=== PATIENT | female | born 1995 | race Caucasian/White ===

== ENCOUNTER → 2019-10-18 | Outpatient (REF) | payer OTHER | LOC: M LAB REF 09:20 | PROVIDERS: ATTEND Physician Assistant | DX: J02.9 Acute pharyngitis, unspecified (principal) ==

== ENCOUNTER 2020-09-24 19:10 | Observation (INO) | payer OTHER ==
[~2020-09-24] VITALS: Ht 152.4 cm; Wt 79.9 kg
[2020-09-24] MEDS ORDERED: WELLTAB40 PO ×2 (19:18→22:50)
[2020-09-24] MEDS ORDERED: NUVAMIS2 PV (19:32)
[2020-09-24] MEDS ORDERED: NS 1,000 ML IV ONE (20:00)
[2020-09-24 20:18] LABS: BASO % 0.5 % (0.0-1.0); EOS % 0.2 % (0.0-3.0); HEMATOCRIT 44.9 % (36.0-47.0); HEMOGLOBIN 14.4 g/dl (12.0-15.5); LYMPH # 0.8 10^3/uL (1.5-5.0); LYMPH % 12.8 % (24.0-44.0); MEAN CORPUSCULAR HEMOGLOBIN 28.1 pg (27.0-33.0); MEAN CORPUSCULAR HGB CONC 32.1 g/dl (32.0-36.5); MEAN CORPUSCULAR VOLUME 87.7 fl (80.0-96.0); MONO # 0.8 10^3/uL (0.0-0.8); MONO % 11.7 % (0.0-5.0); NEUTROPHILS # 4.8 10^3/uL (1.5-8.5); NEUTROPHILS % 74.5 % (36.0-66.0); PLATELET COUNT, AUTOMATED 241 10^3/uL (150-450); RED BLOOD COUNT 5.12 10^6/uL (4.00-5.40); WHITE BLOOD COUNT 6.4 10^3/uL (4.0-10.0)
[2020-09-24 21:35] LABS: ALBUMIN 3.8 GM/DL (3.2-5.2); ALT/SGPT 58 U/L (12-78); BILIRUBIN,DIRECT 0.1 MG/DL (0.0-0.2); BILIRUBIN,TOTAL 0.2 MG/DL (0.2-1.0); BLOOD UREA NITROGEN 13 MG/DL (7-18); CALCIUM LEVEL 9.4 MG/DL (8.5-10.1); CARBON DIOXIDE LEVEL 24 MEQ/L (21-32); CHLORIDE LEVEL 107 MEQ/L (98-107); CREATININE FOR GFR 1.07 MG/DL (0.55-1.30); GLOMERULAR FILTRATION RATE > 60.0 (>60); GLUCOSE, FASTING 87 MG/DL (70-100); NT-PRO BNP 21 PG/ML (<125); SODIUM LEVEL 136 MEQ/L (136-145); THYROID STIMULATING HORMONE 0.878 uIU/ML (0.358-3.740); THYROXINE (T4) 10.9 UG/DL (4.5-12.0); TOTAL PROTEIN 7.6 GM/DL (6.4-8.2)
--- NOTE | 2020-09-24 22:33 | REPVR ---
PROCEDURE INFORMATION: Exam: XR Chest, 1 View Exam date and time: 09/24/2020 9:54 PM Age: 24 years old Clinical indication: Cough and dyspnea; Additional info: Dyspnea/cough TECHNIQUE: Imaging protocol: XR of the chest Views: 1 view. COMPARISON: CR Chest, 2 view PA, Lat 03/12/2015 5:23 PM FINDINGS: Lungs: Unremarkable. No consolidation. Pleural space: Unremarkable. No pleural effusion. No pneumothorax. Heart/Mediastinum: Unremarkable. No cardiomegaly. Bones/joints: Unremarkable. IMPRESSION: No acute findings. Electronically signed by: Derrek Severino On 09/24/2020 22:33:35 PM
[2020-09-24] MEDS ORDERED: ACETAMINOPHEN TAB 650MG DOSE (2X325MG) PO ONE (22:45)
[2020-09-24] MEDS ORDERED: dexameTHASONE 20MG/5ML VIAL (J1100 PER 1MG) IV ONE (22:45)
[2020-09-24] MEDS ORDERED: ALPRAZolam 0.25 MG TAB PO ONE (22:45)
[2020-09-24] MEDS ORDERED: PREN1TAB15 PO (22:50)
[2020-09-24] MEDS ORDERED: NUVAMIS2 VA (22:50)
[2020-09-24 23:01] LABS: INR 0.91; PROTHROMBIN TIME 12.4 SECONDS (12.5-14.3)
[2020-09-24 23:03] LABS: D-DIMER QUANT 325.13 ng/ml (<500)
[2020-09-24] MEDS ORDERED: ALPRAZolam 0.25 MG TAB PO PRN (23:15)
[2020-09-24] MEDS ORDERED: ACETAMINOPHEN TAB 650MG DOSE (2X325MG) PO PRN (23:15)
[2020-09-24 23:20] LABS: C REACTIVE PROTEIN QUANTITATIV 2.56 MG/DL (0.00-0.30); FERRITIN 85 NG/ML (8-252)
[2020-09-24 23:41] LABS: CK-MB VALUE MASS 1.3 NG/ML (<3.6); CPK CREATINE PHOSPHOKINASE 119 U/L (26-192); MB/CK RELATIVE INDEX 1.09 (< OR =4); TROPONIN I < 0.02 NG/ML (< 0.10)
--- NOTE | 2020-09-24 23:59 | HPEPDOC ---
[facility] Medical History & Physical Date of Admission Sep 24, 2020 Date of Service: Sep 24, 2020 History and Physical Chief complaint: Presented to the ER with complaints of chest pain History of present illness: Patient is 24-year-old female with a PMHx of Depression / Anxiety, Polycystic ovarian syndrome, Childhood asthma who presented to the emergency room with complaints of chest pain. 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 On Tuesday patient had tested negative. Patient reported that yesterday. Patient awoke from sleep and reported that she couldnt breathe this morning she woke up with a raspy voice but felt that her breathing was normal. This afternoon, patient began to experience some chest pain that progressed as she went to work. Patient described the chest pain is occurring in the center of her chest; 5- 6/10, continuous aggravated with deep inhalation and alleviated with rest. Patient reported that at work she began crying and felt slightly anxious and came to the emergency room for further evaluation. Patient reports that she is short of breath but denies any cough. She has not e xperience any fevers or chills while at home, however was noted to have a fever while in the ER. Patient denies any nausea, vomiting, constipation or diarrhea. Denies any urinary discomfort. Does report some upper abdominal discomfort has been occurring over the last 1 month. Patient notes that she was recently treated for bacterial vaginosis and has completed a seven-day course of antibiotics 48 hours ago. Patient reports her appetite is poor but denies any changes in her weight. 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 Review of Systems: 10 point review of systems complete, all negative otherwise stated in HPI Physical exam: - Vitals: BP [142/77], HR [123], RR [19], Sat [100%RA], Temp [100.6F] - General: Sitting up in bed, Crying, Speaking in full sentences, AAOx3 - HEENT: NC, AT, PERRLA - CVS: Tachycardia, +S1S2, - Murmurs / rubs / gallops - Lungs: Fair air entry bilaterally, No appreciable wheezing / rales / rhonchi - Abdomen: Soft, Non-distended, Non-tender - Extremities: No lower extremity edema, No calf tenderness - Neuro: No focal motor or sensory deficit - Skin: No visible rashes Labs: See below Imaging: CXR 09/24: No acute findings. EKG: See below Assessment and Plan: Chest pain - likely 2/2 atypical chest pain - 2/2 COVID infection, possibly 2/2 anxiety attack - Patient presented to emergency room with complaints of chest pain - Patient has a history of childhood asthma - Patient is hemodynamically stable and is febrile emergency room at 100.6 F - Saturating well on room air - No significant leukocytosis or lactic acidosis - Inflammatory markers do not appear to be significantly elevated - Imaging noted above - Will continue with telemetry monitoring / troponin trend - Patient has received Dexamethasone / Alprazolam in the ER - Will c/w Alprazolam for anxiety relief - Will c/w Dexamethasone and Xopinex inhaler (re: history of childhood asthma) - Will start incentive spirometry / acapella Depression / Anxiety - c/w Bupropion Polycystic ovarian syndrome - Patient is on oral contraceptive pills as an outpatient - Will hold while inpatient Gastrointestinal prophylaxis - Patient has reported history of epigastric discomfort - Physical without any epigastric tenderness - Will start Omeprazole DVT prophylaxis - Will start Heparin Vital Signs Vital Signs Date Time Temp Pulse Resp B/P (MAP) Pulse Ox O2 Delivery O2 Flow Rate FiO2 09/24/20 22:30 123 142/77 (98) 100 09/24/20 20:36 19 Room Air 09/24/20 19:11 100.6 Laboratory Data Labs 24H Laboratory Tests 2 09/24/20 20:05: Prothrombin Time 12.4, Prothromb Time International Ratio 0.91, Fibrinogen 384, D-Dimer, Quantitative 325.13 09/24/20 20:06: Immature Granulocyte % (Auto) 0.3, Neutrophils (%) (Auto) 74.5H, Lymphocytes (%) (Auto) 12.8L, Monocytes (%) (Auto) 11.7H, Eosinophils (%) (Auto) 0.2, Basophils (%) (Auto) 0.5, Neutrophils # (Auto) 4.8, Lymphocytes # (Auto) 0.8L, Monocytes # (Auto) 0.8, Eosinophils # (Auto) 0.0, Basophils # (Auto) 0.0, Nucleated Red Blood Cells % (auto) 0.0, Anion Gap 5L, Glomerular Filtration Rate > 60.0, Lactic Acid Level 1.2, Calcium Level 9.4, Ferritin 85, Total Bilirubin 0.2, Direct Bilirubin 0.1, Aspartate Amino Transf (AST/SGOT) 35, Alanine Aminotransferase (ALT/SGPT) 58, Alkaline Phosphatase 61, Total Creatine Kinase 119, Creatine Kinase MB 1.3, Creatine Kinase MB Relative Index 1.09, Troponin I < 0.02, C-Reactive Protein, Quantitative 2.56H, UK-Bvx-I-Type Natriuretic Peptide 21, Total Protein 7.6, Albumin 3.8, Albumin/Globulin Ratio 1.0L, Thyroid Stimulating Hormone (TSH) 0.878, Thyroxine (T4) 10.9 09/24/20 23:30: CBC/BMP Laboratory Tests 09/24/20 20:06 Microbiology Microbiology 09/24/20 Blood Culture, Received Pending 09/24/20 Respiratory Virus Panel (PCR) (RAUL) - Final, Complete SARS-CoV-2 (COVID 19) 09/24/20 Blood Culture, Received Pending Home Medications Scheduled Bupropion HCl (Wellbutrin Xl) 300 Mg Tab.er.24h, 300 MG PO DAILY Etonogestrel/Ethinyl Estradiol (Nuvaring Vaginal Ring) 1 Each Vag.ring, 1 RING VA ASDIRECTED INSERT ONE RING FOR 3 WEEKS, THEN TAKE OUT AND WAIT A WEEK BEFORE INSERTING NEXT RING: RING TO BE TAKEN OUT ON 10/02/2020 Pnv,Calcium 72/Iron/Folic Acid ( Vitamin Plus Low Iron) 1 Each Tablet, 1 TAB PO DAILY Allergies Coded Allergies: iodine (Verified Allergy, Severe, TONGUE SWELLING, 09/24/20) Sulfa (Sulfonamide Antibiotics) (Verified Allergy, Intermediate, RASH, SWELLING, 09/24/20) clarithromycin (Verified Adverse Reaction, Intermediate, THRUSH, 09/24/20) RODNEY CRAWFORD MD Sep 24, 2020 23:59
[2020-09-25] MEDS ORDERED: LEVALBUTEROL HFA 45MCG/ACT 15 GM INHALER INH PRN
[2020-09-25 00:57] VITALS: BP 122/62
[2020-09-25] MEDS: HEPARIN SOD (PORCINE) 5000UNITS/ML 1ML VIAL/SYRINGE SC SCH ×2 (04:45→14:00)
[2020-09-25 04:50] VITALS: BP 120/70
[2020-09-25 07:00] LABS: HEMATOCRIT 44.5 % (36.0-47.0); HEMOGLOBIN 14.2 g/dl (12.0-15.5); LYMPH # 0.4 10^3/uL (1.5-5.0); LYMPH % 10.3 % (24.0-44.0); MEAN CORPUSCULAR HGB CONC 31.9 g/dl (32.0-36.5); MEAN CORPUSCULAR VOLUME 87.6 fl (80.0-96.0); MONO # 0.1 10^3/uL (0.0-0.8); MONO % 3.4 % (0.0-5.0); NEUTROPHILS # 3.6 10^3/uL (1.5-8.5); NEUTROPHILS % 85.8 % (36.0-66.0); PLATELET COUNT, AUTOMATED 248 10^3/uL (150-450); RED BLOOD COUNT 5.08 10^6/uL (4.00-5.40); WHITE BLOOD COUNT 4.2 10^3/uL (4.0-10.0)
[2020-09-25 09:00] VITALS: BP 113/72
[2020-09-25] MEDS ORDERED: dexameTHASONE 4 MG/ML 1ML VIAL (J1100 PER 1MG) IV SCH (09:00)
[2020-09-25] MEDS ORDERED: OMEPRAZOLE 20 MG CAP PO SCH (09:00)
[2020-09-25] MEDS ORDERED: buPROPion **XL** TABLET 150MG (WELLBUTRIN XL) PO SCH (09:00)
[2020-09-25] MEDS ORDERED: PRENATAL VITAMINS CHEWABLE TABLET PO SCH (09:00)
[2020-09-25] MEDS ORDERED: LORazepam 2 MG/ML VIAL IV STA (11:05)
[2020-09-25] MEDS ORDERED: LORazepam 2 MG/ML VIAL As Ordered ONE (11:09)
[2020-09-25 11:38] LABS: ALBUMIN 3.6 GM/DL (3.2-5.2); ALT/SGPT 60 U/L (12-78); BILIRUBIN,DIRECT 0.1 MG/DL (0.0-0.2); BILIRUBIN,TOTAL 0.4 MG/DL (0.2-1.0); BLOOD UREA NITROGEN 9 MG/DL (7-18); CALCIUM LEVEL 9.1 MG/DL (8.5-10.1); CARBON DIOXIDE LEVEL 22 MEQ/L (21-32); CHLORIDE LEVEL 109 MEQ/L (98-107); CREATININE FOR GFR 0.94 MG/DL (0.55-1.30); FERRITIN 80 NG/ML (8-252); GLOMERULAR FILTRATION RATE > 60.0 (>60); GLUCOSE, FASTING 120 MG/DL (70-100); HEPATITIS A ANTIBODY IGM NEGATIVE (NEGATIVE); HEPATITIS B CORE ANTIBODY IGM NEGATIVE (NEGATIVE); HEPATITIS B SURFACE ANTIGEN NEGATIVE (NEGATIVE); HEPATITIS C VIRUS ABY INDEX < 0.0 INDEX (<0.8); MAGNESIUM LEVEL 2.3 MG/DL (1.8-2.4); POTASSIUM SERUM 4.4 MEQ/L (3.5-5.1); SODIUM LEVEL 139 MEQ/L (136-145); TOTAL PROTEIN 7.5 GM/DL (6.4-8.2)
--- NOTE | 2020-09-25 12:11 | ECGEPIP ---
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
--- NOTE | 2020-09-25 12:38 | IPNPDOC ---
Text Note Date of Service The patient was seen on 09/25/20. NOTE Subjective: Patient was seen and examined this morning at bedside. Patient tells me that she didn't know she had colon cancer she was tested while going to work. Tells me she didn't display any symptoms denies any fevers cough shortness of breath but tells me she gets frequent anxiety attacks. The knowledge of having been diagnosed with Covid has caused her to have multiple anxiety attacks since being admitted for observation. She tells me she's feeling better now. Patient has 2 children at home and her mother is currently taking care of them discuss plan for quarantine patient understands and will comply per CDC recommendations. Patient says she had a episode of anxiety attack earlier in the day where she felt her heart was racing and she was sweating but after 1 mg of IV Ativan patient calmed down and was feeling much better. Currently patient denies any shortness of breath, denies palpitations or chest pain, and says she feels well enough to go home. Objective: Constitutional: Awake and alert ENT: Sclera are clear Respiratory: Lungs CTA bilaterally. No respiratory distress. No use of accessory muscles. Saturating at 96% on room air Cardiovascular: RRR S1 and S2 are normal Neurologic: No focal neurological deficit. Mental Status: A&O x3, anxious Focused physical exam was completed to limit exposure time to Covid patient. Assessment/plan: 24-year-old female history of depression, anxiety with panic attacks, polycystic ovarian syndrome, asthma in childhood who was found to be positive for Covid during routine workplace screening and was admitted for observation after having a panic attack. Panic attack is resolved and patient is feeling well at time of discharge. Patient will be getting some benzodiazepines to take by mouth as needed to help with the anxiety attack. Then use of being diagnosed with Covid is what triggered her anxiety attack. She is otherwise asymptomatic saturating at 96% on room air and denies any shortness of breath or chest pain at the time of discharge. She also denies any nausea vomiting. Chest x-ray done on day of admission shows no acute findings. Patient is afebrile with no leukocytosis at time of discharge patient did have a single fever 100.6 upon admission related to Covid. [facility] Lola SARAH, I+O VSLola, I+O Laboratory Tests 09/24/20 20:06 12/3/20 06:29 Vital Signs Date Time Temp Pulse Resp B/P (MAP) Pulse Ox O2 Delivery O2 Flow Rate FiO2 09/25/20 09:00 98.2 108 20 113/72 (86) 98 Room Air I&O- Last 24 Hours up to 6 AM 09/25/20 06:00 Intake Total 1060 ml Output Total 200 ml Balance 860 ml ALLI PAYNE MD Sep 25, 2020 12:38
[2020-09-25] MEDS ORDERED: ACET1TAB55 PO ×2 (12:44→12:47)
[2020-09-25] MEDS ORDERED: ALPR0.25 PO ×3 (12:44→12:49)
[2020-09-25] MEDS ORDERED: LEVAINH INH ×2 (12:44→12:47)
[2020-09-25] MEDS ORDERED: ALPR2TAB3 PO (12:51)
[2020-09-25] MEDS ORDERED: ALBUTEROL 90 MCG/ACT 8GM HFA INHALER INH PRN (13:00)
== END 2020-09-25 15:45 | disposition home or self-care (01) ==
LOC: M ED 19:10 → M ED INP 19:11 → ENRESERV 23:21 → M 4MAIN 09-25 01:00
PROVIDERS: ADMIT Internal Medicine; ATTEND Internal Medicine
DX: U07.1 COVID-19 (principal); R07.89 Other chest pain; F41.9 Anxiety disorder, unspecified; F32.9 Major depressive disorder, single episode, unspecified; E28.2 Polycystic ovarian syndrome; Z88.2 Allergy status to sulfonamides; Z88.1 Allergy status to other antibiotic agents
CPT/HCPCS: 36415; 71045; 80048; 80076; 81001; 82550; 82553; 82728; 83605; 83735; 83880; 84145; 84436; 84443; 84484; 85025; 85379; 85384; 85610; 86140; 86705; 86709; 86803; 87040; 87086; 87340; 87486; 87581; 87633; 87798; 93005; 93041; 94760; 96374; 96375; 96376; 99285; J1100; J1644; J2060

== ENCOUNTER 2020-10-11 18:49 | Emergency (ER) | payer OTHER ==
[~2020-10-11] VITALS: Ht 152.4 cm; Wt 79.5 kg
[~2020-10-11 18:49] MED LIST: ACET1TAB55 PO; ALPR0.25 PO; ALPR2TAB3 PO; LEVAINH INH; NUVAMIS2 PV; NUVAMIS2 VA; PREN1TAB15 PO; WELLTAB40 PO
[2020-10-11] MEDS ORDERED: GI COCKTAIL 50ML BTL(HYOSCYAMINE/MAALOX/LIDOCAINE VISCOUS)(1:3:1) PO ONE (19:15)
--- NOTE | 2020-10-11 19:46 | REP ---
INDICATION: CHEST PAIN covid + COMPARISON: 09/24/2020 TECHNIQUE: Portable AP view of the chest FINDINGS: The mediastinum and cardiac silhouette are stable and within normal limits for portable technique. The lung clinton are clear without acute consolidation, effusion, or pneumothorax. Skeletal structures are intact. IMPRESSION: No acute cardiopulmonary process appreciated. <Electronically signed by Luis Sosa > 10/11/20 194
[2020-10-11 19:53] LABS: VENOUS BASE EXCESS -0.9 (-2.0-2.0); VENOUS HCO3 24.8 MEQ/L (23.0-27.0); VENOUS O2 SATURATION 72.5 % (60.0-80.0); VENOUS PARTIAL PRESSURE CO2 45.2 mmHg (38.0-50.0); VENOUS PARTIAL PRESSURE O2 37.9 mmHg (30.0-50.0); VENOUS PH 7.358 UNITS (7.330-7.430); VENOUS STANDARD HCO3 23.1 MEQ/L; VENOUS TOTAL CO2 26.2 MEQ/L (24.0-28.0)
[2020-10-11 19:57] LABS: BASO % 0.3 % (0.0-1.0); EOS # 0.1 10^3/uL (0.0-0.5); EOS % 1.3 % (0.0-3.0); HEMATOCRIT 40.3 % (36.0-47.0); LYMPH # 2.8 10^3/uL (1.5-5.0); LYMPH % 31.3 % (24.0-44.0); MEAN CORPUSCULAR HEMOGLOBIN 28.3 pg (27.0-33.0); MEAN CORPUSCULAR HGB CONC 32.3 g/dl (32.0-36.5); MEAN CORPUSCULAR VOLUME 87.6 fl (80.0-96.0); MONO # 0.7 10^3/uL (0.0-0.8); MONO % 7.4 % (0.0-5.0); NEUTROPHILS # 5.3 10^3/uL (1.5-8.5); NEUTROPHILS % 59.4 % (36.0-66.0); PLATELET COUNT, AUTOMATED 290 10^3/uL (150-450); WHITE BLOOD COUNT 8.9 10^3/uL (4.0-10.0)
[2020-10-11 20:26] LABS: BLOOD UREA NITROGEN 11 MG/DL (7-18); CALCIUM LEVEL 9.1 MG/DL (8.5-10.1); CARBON DIOXIDE LEVEL 28 MEQ/L (21-32); CHLORIDE LEVEL 108 MEQ/L (98-107); CK-MB VALUE MASS < 1.0 NG/ML (<3.6); CPK CREATINE PHOSPHOKINASE 44 U/L (26-192); CREATININE FOR GFR 1.02 MG/DL (0.55-1.30); GLOMERULAR FILTRATION RATE > 60.0 (>60); GLUCOSE, FASTING 123 MG/DL (70-100); MB/CK RELATIVE INDEX 2.27 (< OR =4); POTASSIUM SERUM 3.6 MEQ/L (3.5-5.1); SODIUM LEVEL 142 MEQ/L (136-145); TROPONIN I < 0.02 NG/ML (< 0.10)
[2020-10-11 20:53] VITALS: BP 102/57
== END 2020-10-11 20:50 | disposition home or self-care (01) ==
LOC: M ED 18:49
DX: R07.89 Other chest pain (principal); U07.1 COVID-19; J45.909 Unspecified asthma, uncomplicated; Z79.3 Long term (current) use of hormonal contraceptives; Z79.899 Other long term (current) drug therapy; Z88.2 Allergy status to sulfonamides; Z88.1 Allergy status to other antibiotic agents; Z91.89 Other specified personal risk factors, not elsewhere classified

== ENCOUNTER 2020-10-27 19:51 | Emergency (ER) | payer OTHER ==
[~2020-10-27] VITALS: Ht 152.4 cm; Wt 77.6 kg
[2020-10-27 21:50] LABS: BASO % 0.2 % (0.0-1.0); EOS # 0.1 10^3/uL (0.0-0.5); EOS % 1.2 % (0.0-3.0); HEMATOCRIT 42.3 % (36.0-47.0); HEMOGLOBIN 14.1 g/dl (12.0-15.5); LYMPH # 3.1 10^3/uL (1.5-5.0); MEAN CORPUSCULAR HEMOGLOBIN 29.3 pg (27.0-33.0); MEAN CORPUSCULAR HGB CONC 33.3 g/dl (32.0-36.5); MEAN CORPUSCULAR VOLUME 87.8 fl (80.0-96.0); MONO # 0.6 10^3/uL (0.0-0.8); MONO % 7.4 % (0.0-5.0); NEUTROPHILS # 4.6 10^3/uL (1.5-8.5); PLATELET COUNT, AUTOMATED 245 10^3/uL (150-450); RED BLOOD COUNT 4.82 10^6/uL (4.00-5.40); WHITE BLOOD COUNT 8.4 10^3/uL (4.0-10.0)
[2020-10-27 22:14] LABS: ALBUMIN 3.8 GM/DL (3.2-5.2); ALT/SGPT 44 U/L (12-78); BILIRUBIN,DIRECT < 0.1 MG/DL (0.0-0.2); BILIRUBIN,TOTAL 0.3 MG/DL (0.2-1.0); BLOOD UREA NITROGEN 15 MG/DL (7-18); CALCIUM LEVEL 8.8 MG/DL (8.5-10.1); CARBON DIOXIDE LEVEL 27 MEQ/L (21-32); CHLORIDE LEVEL 111 MEQ/L (98-107); CREATININE FOR GFR 1.05 MG/DL (0.55-1.30); GLOMERULAR FILTRATION RATE > 60.0 (>60); GLUCOSE, FASTING 79 MG/DL (70-100); LIPASE 133 U/L (73-393); POTASSIUM SERUM 4.4 MEQ/L (3.5-5.1); SODIUM LEVEL 143 MEQ/L (136-145); TOTAL PROTEIN 7.2 GM/DL (6.4-8.2)
[2020-10-27 22:16] LABS: HCG, SERUM QUALITATIVE NEGATIVE (NEGATIVE)
[2020-10-27] MEDS ORDERED: ONDANSETRON 4 MG ORAL DISINTEGRATING TAB PO ONE (22:30)
[2020-10-27] MEDS ORDERED: ACETAMINOPHEN 500 MG TAB PO ONE (22:30)
--- NOTE | 2020-10-27 23:14 | REPVR ---
PROCEDURE INFORMATION: Exam: US Abdomen, Limited; Right Upper Quadrant Exam date and time: 10/27/2020 10:46 PM Age: 25 years old Clinical indication: Abdominal pain; Acute; Additional info: Moderate ttp, + murphys sign TECHNIQUE: Imaging protocol: US abdomen. Real time ultrasound with image documentation. Limited exam focused on the right upper quadrant. COMPARISON: RENAL US 12/01/2013 6:03 PM FINDINGS: Liver: Unremarkable. Gallbladder: Cholelithiasis without gallbladder wall thickening or pericholecystic fluid. Positive sonographic James's sign, as per the auto clocks repairer. This is a nonspecific finding. Common bile duct: No stones. No ductal dilatation. Pancreas: Suboptimally visualized. Right kidney: No mass. No definite stones. No hydronephrosis. IMPRESSION: Cholelithiasis without convincing sonographic evidence of acute cholecystitis. Electronically signed by: Gildardo Floyd On 10/27/2020 23:15:28 PM
[2020-10-27] MEDS ORDERED: KETO10TAB PO (23:37)
[2020-10-27] MEDS ORDERED: KETOROLAC 60MG 2ML VIAL IM ONE (23:45)
[2020-10-27] MEDS ORDERED: KETOROLAC TROMETHAMINE 10 MG TAB PO ONE (23:45)
[2020-10-27 23:46] VITALS: BP 109/64
== END 2020-10-28 00:49 | disposition home or self-care (01) ==
LOC: M ED 19:51
DX: K80.50 Calculus of bile duct without cholangitis or cholecystitis without obstruction (principal); F41.9 Anxiety disorder, unspecified; F32.9 Major depressive disorder, single episode, unspecified; Z86.19 Personal history of other infectious and parasitic diseases; Z87.448 Personal history of other diseases of urinary system; Z79.3 Long term (current) use of hormonal contraceptives; Z79.899 Other long term (current) drug therapy; Z88.2 Allergy status to sulfonamides; Z88.1 Allergy status to other antibiotic agents; Z91.89 Other specified personal risk factors, not elsewhere classified
CPT/HCPCS: 76705; 80048; 80076; 83690; 84703; 85025; 99283; Q0162

== ENCOUNTER → 2020-12-21 | Outpatient (CLI) | payer OTHER ==
[~2020-12-21] MED LIST changes: +KETO10TAB PO
== END ==
LOC: M LABSMTC 09:54
PROVIDERS: ATTEND Anesthesiology
DX: Z01.812 Encounter for preprocedural laboratory examination (principal); Z20.822 Contact with and (suspected) exposure to COVID-19

== ENCOUNTER 2020-12-26 08:53 | Day surgery (SDC) | payer OTHER ==
[~2020-12-26] VITALS: Ht 152.4 cm; Wt 74.8 kg
[~2020-12-26 08:53] MED LIST changes: +LR 1,000 ML IV ONE
[2020-12-26] MEDS ORDERED: ROCURONIUM BROMIDE 50 MG/5 ML VIAL As Ordered ONE (09:56)
[2020-12-26] MEDS ORDERED: LIDOCAINE 2% 100MG/5ML SDV (FOR ANES.) As Ordered ONE (09:56)
[2020-12-26] MEDS ORDERED: propofoL 200 MG/20 ML VIAL As Ordered ONE (09:56)
[2020-12-26] MEDS ORDERED: MIDAZOLAM INJ 2MG/2ML VIAL (J2250 PER 1MG) As Ordered ONE (09:57)
[2020-12-26] MEDS ORDERED: fentaNYL 250 MCG/5 ML INJECTION (J3010) As Ordered ONE (09:57)
[2020-12-26] MEDS ORDERED: BUPIVACAINE/EPIN 0.25% 30 ML VIAL As Ordered ONE (10:26)
[2020-12-26] MEDS ORDERED: ESMOLOL INJ 100MG/10ML VIAL As Ordered ONE (11:04)
[2020-12-26] MEDS ORDERED: ACETAMINOPHEN 1000MG 100ML IV BTL (OFIRMEV) (J0131 PER 10MG) As Ordered ONE (11:14)
[2020-12-26] MEDS ORDERED: ONDANSETRON 4MG/2ML VIAL As Ordered ONE ×2 (11:14→12:38)
[2020-12-26] MEDS ORDERED: METOCLOPRAMIDE INJ 10MG/2ML VIAL (J2765 PER 1) As Ordered ONE (11:14)
[2020-12-26] MEDS ORDERED: KETOROLAC 60MG 2ML VIAL As Ordered ONE (11:14)
[2020-12-26] MEDS ORDERED: dexameTHASONE 4 MG/ML 1ML VIAL (J1100 PER 1MG) As Ordered ONE (11:14)
[2020-12-26] MEDS ORDERED: SUGAMMADEX SODIUM 500 MG/5 ML VIAL (BRIDION) As Ordered ONE (11:18)
[2020-12-26] MEDS ORDERED: fentaNYL 100 MCG/2 ML INJECTION (J3010) As Ordered ONE (11:46)
[2020-12-26] MEDS ORDERED: oxyCODONE 5MG TAB PO PRN (12:00)
[2020-12-26] MEDS ORDERED: HYDROMORPHONE HCL 0.5 MG/ 0.5 ML SYRINGE (J1170 PER 1) IV PRN (12:00)
[2020-12-26] MEDS ORDERED: fentaNYL 100 MCG/2 ML INJECTION (J3010) IV PRN (12:00)
[2020-12-26] MEDS ORDERED: LR 1,000 ML IV SCH (12:00)
[2020-12-26] MEDS: HYDROMORPHONE HCL 0.5 MG/ 0.5 ML SYRINGE (J1170 PER 1) IV PRN ×3 (12:18→12:45)
--- NOTE | 2020-12-26 12:31 | RO ---
OPERATIVE NOTE DATE OF OPERATION: 12/26/2020 PREOPERATIVE DIAGNOSIS: Symptomatic cholelithiasis. POSTOPERATIVE DIAGNOSIS: Symptomatic cholelithiasis. PROCEDURE: Robotic cholecystectomy. SURGEON: Isaias Zuleta DO CONFERENCE CENTER MANAGER: Kelly Coleman ANESTHESIA: General. EBL: 5. COMPLICATIONS: None. INDICATIONS FOR PROCEDURE: The patient is a 25-year-old female who presents with symptomatic cholecystitis. Recommendation was to proceed with robotic cholecystectomy. Risks and benefits of the procedure not limited to but including bleeding, infection, hernia formation, damage to surrounding structures, need for further surgery were discussed in detail with the patient, informed consent obtained, procedure was planned. DESCRIPTION OF PROCEDURE: The patient was brought back to operating room 7, after sufficient sedation the abdomen was sterilely prepped and draped. Time out was done to confirm proper patient, proper procedure. Following that 8 mm incision was made in the left upper quadrant, Veress needle was inserted and abdomen was insufflated to 15 mmHg. Veress needle was then removed and 8 mm Optiview port was used to gain access to the abdomen. Once the abdomen was entered three more ports were placed across the right upper quadrant. The robot was docked to the ports. Once the ports were docked the right upper quadrant was examined. Gallbladder fundus was elevated up toward the right shoulder. The cystic artery was anterior on the gallbladder, easily visible. It was dissected free and clipped and cut to move it out of the way. The cystic duct was then dissected free circumferentially and then carefully doubly clipped and cut as well. Rest of the gallbladder was then dissected free from the gallbladder fossa intact, placed inside 5 mm Endo Catch bag and brought out through the right lateral port site. Once the gallbladder was removed 2-0 V-Loc suture was used to close the fascia in peritoneum on the right lateral portal site. The abdomen was desufflated and skin incisions were closed with 4-0 Vicryl subcuticular sutures. The abdomen was cleaned and dried; Steri-Strips and 4 x 4 tapes were applied. This ended the procedure.
[2020-12-26] MEDS ORDERED: ONDANSETRON 4MG/2ML VIAL IV ONE (12:45)
[2020-12-26] MEDS ORDERED: NORCO, ANEXSIA 5/325MG TABLET (HYDROcodone/ACETAMINOPHEN) PO PRN (13:00)
[2020-12-26 14:30] VITALS: BP 117/65
== END 2020-12-26 14:45 | disposition home or self-care (01) ==
LOC: M SDC 08:53
PROVIDERS: ATTEND Surgery
DX: K80.10 Calculus of gallbladder with chronic cholecystitis without obstruction (principal); K21.9 Gastro-esophageal reflux disease without esophagitis; K76.0 Fatty (change of) liver, not elsewhere classified; F41.9 Anxiety disorder, unspecified; F32.9 Major depressive disorder, single episode, unspecified; J45.909 Unspecified asthma, uncomplicated; Z86.16 Personal history of COVID-19; Z88.2 Allergy status to sulfonamides; Z88.1 Allergy status to other antibiotic agents; Z88.8 Allergy status to other drugs, medicaments and biological substances
CPT/HCPCS: 47562; 81025; 88304; J0131; J1100; J1170; J1885; J2250; J2405; J2765; J3010; S2900

== ENCOUNTER 2021-06-20 01:32 | Emergency (ER) | payer OTHER ==
[~2021-06-20] VITALS: Ht 152.4 cm; Wt 79.5 kg
[2021-06-20 01:32] VITALS: BP 120/76
[~2021-06-20 01:32] MED LIST changes: -LR 1,000 ML IV ONE
== END 2021-06-20 04:01 | disposition left against medical advice (07) ==
LOC: M ED 01:32
DX: Z53.21 Procedure and treatment not carried out due to patient leaving prior to being seen by health care provider (principal)

== ENCOUNTER 2021-06-24 11:50 | Emergency (ER) | payer OTHER ==
[~2021-06-24] VITALS: Ht 152.4 cm; Wt 77.7 kg
[2021-06-24] MEDS ORDERED: diphenhydrAMINE 50MG/ML VIAL (J1200) IV STA (14:07)
[2021-06-24] MEDS ORDERED: NS 1,000 ML IV ONE (14:10)
[2021-06-24 14:57] LABS: BASO % 0.4 % (0.0-1.0); EOS # 0.1 10^3/uL (0.0-0.5); EOS % 0.5 % (0.0-3.0); HEMATOCRIT 46.3 % (36.0-47.0); LYMPH # 2.5 10^3/uL (1.5-5.0); LYMPH % 25.5 % (24.0-44.0); MEAN CORPUSCULAR HEMOGLOBIN 29.1 pg (27.0-33.0); MEAN CORPUSCULAR HGB CONC 32.4 g/dl (32.0-36.5); MEAN CORPUSCULAR VOLUME 89.9 fl (80.0-96.0); MONO # 0.6 10^3/uL (0.0-0.8); MONO % 6.4 % (2.0-8.0); NEUTROPHILS # 6.5 10^3/uL (1.5-8.5); NEUTROPHILS % 66.7 % (36.0-66.0); PLATELET COUNT, AUTOMATED 266 10^3/uL (150-450); RED BLOOD COUNT 5.15 10^6/uL (4.00-5.40); WHITE BLOOD COUNT 9.8 10^3/uL (4.0-10.0)
[2021-06-24] MEDS ORDERED: ISOVUE-370 76% 100ML VIAL As Ordered ONE (15:19)
[2021-06-24 15:31] LABS: ALBUMIN 3.7 GM/DL (3.2-5.2); BILIRUBIN,DIRECT 0.1 MG/DL (0.0-0.2); BILIRUBIN,TOTAL 0.4 MG/DL (0.2-1.0); C REACTIVE PROTEIN QUANTITATIV 1.28 MG/DL (0.00-0.30); TOTAL PROTEIN 7.7 GM/DL (6.4-8.2)
--- NOTE | 2021-06-24 16:22 | REP ---
INDICATION: right sided abdominal pain/>RLQ COMPARISON: 12/25/2009. TECHNIQUE: CT Scan of the abdomen and pelvis was performed with intravenous administration of 100 cc of Isovue 370, without oral contrast. Sagittal and coronal reconstruction images are performed. FINDINGS: Lung bases: Unremarkable. Liver: Normal Gallbladder: Prior cholecystectomy. Spleen: Normal. Adrenals: Normal. Pancreas: Normal. Kidneys: Normal. Small and large bowel: Unremarkable. There is no free air or obstruction. Free fluid: None. Abdominal aorta: No aneurysm or dissection. Adenopathy: None. Appendix: Not inflamed. Osseous structures: Unremarkable. Pelvis: No mass. IMPRESSION: Negative CT abdomen and pelvis. <Electronically signed by Isaias Stout > 06/24/21 [id number]
[2021-06-24] MEDS ORDERED: KETOROLAC 30 MG/ML 1ML VIAL IV ONE (16:35)
[2021-06-24] MEDS ORDERED: KETO10TAB PO ×2 (18:53→19:07)
[2021-06-24] MEDS ORDERED: ZOFR4TAB16 PO (18:53)
[2021-06-24 18:57] VITALS: BP 106/61
[2021-06-24 22:34] LABS: GC DNA AMPLIFICATION NEGATIVE (NEGATIVE)
== END 2021-06-24 19:18 | disposition home or self-care (01) ==
LOC: M ED 11:50
DX: R10.9 Unspecified abdominal pain (principal); R11.0 Nausea; J45.909 Unspecified asthma, uncomplicated; Z87.891 Personal history of nicotine dependence; Z79.3 Long term (current) use of hormonal contraceptives; Z79.899 Other long term (current) drug therapy; Z88.2 Allergy status to sulfonamides; Z88.1 Allergy status to other antibiotic agents; Z91.013 Allergy to seafood
CPT/HCPCS: 74177; 80047; 80076; 83690; 84702; 85025; 86140; 87210; 87661; 96361; 96374; 96375; 99284; J1200; J1885; Q9967; U0003

== ENCOUNTER 2021-12-29 14:44 | Emergency (ER) | payer OTHER, MEDICAID ==
[~2021-12-29] VITALS: Ht 152.4 cm; Wt 81.8 kg
[~2021-12-29 14:44] MED LIST changes: +ZOFR4TAB16 PO
[2021-12-29 14:45] VITALS: BP 116/69
[2021-12-29] MEDS ORDERED: MORPHINE 4 MG/ML 1ML VIAL/SYRINGE (J2270) IV ONE (18:05)
[2021-12-29] MEDS ORDERED: NS 1,000 ML IV ONE (18:05)
[2021-12-29] MEDS ORDERED: ONDANSETRON 4MG/2ML VIAL IV ONE (18:05)
[2021-12-29] MEDS ORDERED: HYDR-4570 (18:49)
[2021-12-29] MEDS ORDERED: NOXI1TAB PO (18:49)
[2021-12-29] MEDS ORDERED: LAMO25TA4 PO (18:49)
[2021-12-29] MEDS ORDERED: FLUO20CA22 PO (18:49)
[2021-12-29 19:02] LABS: BASO % 0.4 % (0.0-1.0); EOS # 0.1 10^3/uL (0.0-0.5); EOS % 1.1 % (0.0-3.0); HEMATOCRIT 44.4 % (36.0-47.0); HEMOGLOBIN 14.5 g/dl (12.0-15.5); LYMPH # 3.2 10^3/uL (1.5-5.0); MEAN CORPUSCULAR HEMOGLOBIN 28.7 pg (27.0-33.0); MEAN CORPUSCULAR HGB CONC 32.7 g/dl (32.0-36.5); MEAN CORPUSCULAR VOLUME 87.7 fl (80.0-96.0); MONO # 0.7 10^3/uL (0.0-0.8); MONO % 6.8 % (2.0-8.0); NEUTROPHILS # 6.1 10^3/uL (1.5-8.5); PLATELET COUNT, AUTOMATED 342 10^3/uL (150-450); RED BLOOD COUNT 5.06 10^6/uL (4.00-5.40); WHITE BLOOD COUNT 10.2 10^3/uL (4.0-10.0)
[2021-12-29 19:33] LABS: ALBUMIN 3.8 GM/DL (3.2-5.2); ALT/SGPT 47 U/L (12-78); BILIRUBIN,DIRECT 0.1 MG/DL (0.0-0.2); BILIRUBIN,TOTAL 0.2 MG/DL (0.2-1.0); BLOOD UREA NITROGEN 17 MG/DL (7-18); CALCIUM LEVEL 9.3 MG/DL (8.5-10.1); CARBON DIOXIDE LEVEL 28 MEQ/L (21-32); CHLORIDE LEVEL 106 MEQ/L (98-107); CREATININE FOR GFR 0.97 MG/DL (0.55-1.30); GLOMERULAR FILTRATION RATE > 60.0 (>60); GLUCOSE, FASTING 73 MG/DL (70-100); LIPASE 109 U/L (73-393); POTASSIUM SERUM 4.6 MEQ/L (3.5-5.1); SODIUM LEVEL 140 MEQ/L (136-145); TOTAL PROTEIN 7.3 GM/DL (6.4-8.2)
[2021-12-29] MEDS ORDERED: ISOVUE-370 76% 100ML VIAL As Ordered ONE (20:06)
[2021-12-29] MEDS ORDERED: KETOROLAC 30 MG/ML 1ML VIAL IV ONE (21:50)
[2021-12-29] MEDS ORDERED: AUGMENTIN 875 MG TAB PO ONE (23:15)
[2021-12-29] MEDS ORDERED: AMOX875T2 PO (23:17)
== END 2021-12-29 23:24 | disposition home or self-care (01) ==
LOC: M ED 14:44
DX: K52.9 Noninfective gastroenteritis and colitis, unspecified (principal); K76.0 Fatty (change of) liver, not elsewhere classified; Z88.1 Allergy status to other antibiotic agents; Z88.2 Allergy status to sulfonamides; Z91.013 Allergy to seafood; Z90.49 Acquired absence of other specified parts of digestive tract; Z79.899 Other long term (current) drug therapy
CPT/HCPCS: 74177; 80048; 80076; 81001; 83690; 84702; 85025; 85652; 86140; 96361; 96374; 96375; 99283; J1885; J2270; J2405; Q9967

== ENCOUNTER 2022-01-19 19:33 | Inpatient (IN) | payer OTHER, MEDICAID ==
[~2022-01-19] VITALS: Ht 152.4 cm; Wt 85.5 kg
[~2022-01-19 19:33] MED LIST changes: +AMOX875T2 PO; +FLUO20CA22 PO; +HYDR-4570; +LAMO25TA4 PO; +NOXI1TAB PO
[2022-01-19] MEDS ORDERED: ONDANSETRON 4MG/2ML VIAL IV ONE (22:40)
[2022-01-19] MEDS ORDERED: KETOROLAC 30 MG/ML 1ML VIAL IV ONE (22:40)
[2022-01-19] MEDS ORDERED: NS 1,000 ML IV ONE (22:55)
[2022-01-19 23:10] LABS: BASO # 0.1 10^3/uL (0.0-0.2); BASO % 0.2 % (0.0-1.0); EOS # 0.1 10^3/uL (0.0-0.5); EOS % 0.7 % (0.0-3.0); HEMOGLOBIN 14.2 g/dl (12.0-15.5); LYMPH # 1.1 10^3/uL (1.5-5.0); LYMPH % 5.3 % (24.0-44.0); MEAN CORPUSCULAR HEMOGLOBIN 28.8 pg (27.0-33.0); MEAN CORPUSCULAR VOLUME 87.2 fl (80.0-96.0); MONO # 1.5 10^3/uL (0.0-0.8); MONO % 7.4 % (2.0-8.0); NEUTROPHILS # 17.5 10^3/uL (1.5-8.5); NEUTROPHILS % 85.6 % (36.0-66.0); PLATELET COUNT, AUTOMATED 235 10^3/uL (150-450); RED BLOOD COUNT 4.93 10^6/uL (4.00-5.40); WHITE BLOOD COUNT 20.5 10^3/uL (4.0-10.0)
[2022-01-19 23:24] LABS: BLOOD UREA NITROGEN 11 MG/DL (7-18); CALCIUM LEVEL 8.5 MG/DL (8.5-10.1); CARBON DIOXIDE LEVEL 25 MEQ/L (21-32); CHLORIDE LEVEL 106 MEQ/L (98-107); CREATININE FOR GFR 0.97 MG/DL (0.55-1.30); GLOMERULAR FILTRATION RATE > 60.0 (>60); GLUCOSE, FASTING 118 MG/DL (70-100); HCG, SERUM QUALITATIVE NEGATIVE (NEGATIVE); POTASSIUM SERUM 4.1 MEQ/L (3.5-5.1); SODIUM LEVEL 138 MEQ/L (136-145)
[2022-01-19 23:38] LABS: ERYTHROCYTE SEDIMENTATION RATE 6 mm/hr (0-20)
[2022-01-19] MEDS ORDERED: ISOVUE-370 76% 100ML VIAL As Ordered ONE (23:56)
[2022-01-20] MEDS ORDERED: MORPHINE 4 MG/ML 1ML VIAL/SYRINGE IV ONE (01:05)
[2022-01-20] MEDS ORDERED: AMPICILLIN SOD/SULBACTAM SOD 3 GM in D5W MINI-BAG PLUS 100 ML IV ONE (01:20)
[2022-01-20] MEDS ORDERED: dexameTHASONE 20MG/5ML VIAL (J1100 PER 1MG) IV ONE (01:20)
[2022-01-20] MEDS ORDERED: KETOROLAC 30 MG/ML 1ML VIAL IV PRN (01:50)
[2022-01-20] MEDS: dexameTHASONE 20MG/5ML VIAL (J1100 PER 1MG) IV SCH ×3 (02:32→17:49)
[2022-01-20] MEDS ORDERED: LAMO25TA4 PO (02:37)
[2022-01-20] MEDS ORDERED: ACET-897 PO (02:37)
[2022-01-20] MEDS ORDERED: HYDR-3363 PO (02:37)
[2022-01-20] MEDS ORDERED: IBUP-1764 PO (02:37)
[2022-01-20] MEDS ORDERED: HOME MED LIST COMPLETE! XX SCH (02:40)
[2022-01-20] MEDS: NS 1,000 ML IV SCH ×2 (03:08→10:16)
[2022-01-20 03:30] VITALS: BP 117/68
[2022-01-20] MEDS: hydrOXYzine 25 MG TAB PO SCH ×2 (03:53→20:21)
[2022-01-20] MEDS: lamoTRIgine 25MG TAB PO SCH ×2 (03:53→20:22)
[2022-01-20] MEDS: KETOROLAC 30 MG/ML 1ML VIAL IV PRN ×2 (06:09→11:49)
[2022-01-20 08:00] VITALS: BP 111/63
[2022-01-20 08:05] LABS: HEMATOCRIT 41.4 % (36.0-47.0); HEMOGLOBIN 13.5 g/dl (12.0-15.5); MEAN CORPUSCULAR HEMOGLOBIN 28.2 pg (27.0-33.0); MEAN CORPUSCULAR HGB CONC 32.6 g/dl (32.0-36.5); MEAN CORPUSCULAR VOLUME 86.6 fl (80.0-96.0); PLATELET COUNT, AUTOMATED 187 10^3/uL (150-450); RED BLOOD COUNT 4.78 10^6/uL (4.00-5.40); WHITE BLOOD COUNT 16.4 10^3/uL (4.0-10.0)
[2022-01-20] MEDS: AMPICILLIN SOD/SULBACTAM SOD 3 GM in D5W MINI-BAG PLUS 100 ML IV SCH ×3 (08:12→20:22)
[2022-01-20] MEDS: FLUoxetine 20 MG CAP PO SCH (08:13)
[2022-01-20] MEDS: ACETAMINOPHEN 325 MG/10.15 ML UDC PO PRN ×3 (08:14→20:21)
[2022-01-20 08:29] LABS: BLOOD UREA NITROGEN 9 MG/DL (7-18); CALCIUM LEVEL 8.2 MG/DL (8.5-10.1); CARBON DIOXIDE LEVEL 25 MEQ/L (21-32); CHLORIDE LEVEL 112 MEQ/L (98-107); CREATININE FOR GFR 0.79 MG/DL (0.55-1.30); GLOMERULAR FILTRATION RATE > 60.0 (>60); GLUCOSE, FASTING 129 MG/DL (70-100); POTASSIUM SERUM 4.7 MEQ/L (3.5-5.1); SODIUM LEVEL 140 MEQ/L (136-145)
[2022-01-20 16:00] VITALS: BP 118/63
[2022-01-20] MEDS: KETOROLAC 30 MG/ML 1ML VIAL IV SCH (17:50)
[2022-01-20 20:00] VITALS: BP 112/62
[2022-01-20] MEDS ORDERED: MOM 30ML SUSPENSION UDC PO PRN (20:45)
[2022-01-21] VITALS: BP 117/68
[2022-01-21] MEDS: KETOROLAC 30 MG/ML 1ML VIAL IV SCH ×5 (00:03→23:38)
[2022-01-21] MEDS ORDERED: hydrOXYzine 25 MG TAB PO ONE (00:25)
[2022-01-21] MEDS: ACETAMINOPHEN TAB 650MG DOSE (2X325MG) PO PRN ×2 (00:29→17:08)
[2022-01-21] MEDS: AMPICILLIN SOD/SULBACTAM SOD 3 GM in D5W MINI-BAG PLUS 100 ML IV SCH ×4 (02:06→20:46)
[2022-01-21 06:24] VITALS: BP 112/59
[2022-01-21 07:19] LABS: BASO % 0.1 % (0.0-1.0); HEMOGLOBIN 12.6 g/dl (12.0-15.5); LYMPH # 1.4 10^3/uL (1.5-5.0); LYMPH % 6.8 % (24.0-44.0); MEAN CORPUSCULAR HGB CONC 33.2 g/dl (32.0-36.5); MEAN CORPUSCULAR VOLUME 87.6 fl (80.0-96.0); MONO % 5.1 % (2.0-8.0); NEUTROPHILS # 17.3 10^3/uL (1.5-8.5); NEUTROPHILS % 87.1 % (36.0-66.0); PLATELET COUNT, AUTOMATED 229 10^3/uL (150-450); RED BLOOD COUNT 4.34 10^6/uL (4.00-5.40); WHITE BLOOD COUNT 19.9 10^3/uL (4.0-10.0)
[2022-01-21 07:41] LABS: BLOOD UREA NITROGEN 13 MG/DL (7-18); CALCIUM LEVEL 8.4 MG/DL (8.5-10.1); CARBON DIOXIDE LEVEL 24 MEQ/L (21-32); CHLORIDE LEVEL 112 MEQ/L (98-107); CREATININE FOR GFR 0.88 MG/DL (0.55-1.30); GLOMERULAR FILTRATION RATE > 60.0 (>60); GLUCOSE, FASTING 156 MG/DL (70-100); POTASSIUM SERUM 4.2 MEQ/L (3.5-5.1); SODIUM LEVEL 141 MEQ/L (136-145)
[2022-01-21 08:25] VITALS: BP 99/57
[2022-01-21] MEDS: FLUoxetine 20 MG CAP PO SCH (08:27)
[2022-01-21] MEDS: ONDANSETRON 4MG/2ML VIAL IV PRN ×3 (08:37→22:20)
[2022-01-21] MEDS ORDERED: CALCIUM CARBONATE 500 MG CHEW U/D PO PRN (12:55)
[2022-01-21] MEDS ORDERED: CALCIUM CARBONATE 500 MG CHEW U/D PO ONE (13:15)
[2022-01-21] MEDS: NS 1,000 ML IV SCH (13:34)
[2022-01-21 16:00] VITALS: BP 120/67
[2022-01-21 20:00] VITALS: BP 97/57
[2022-01-21] MEDS: hydrOXYzine 25 MG TAB PO SCH (20:47)
[2022-01-21] MEDS: lamoTRIgine 25MG TAB PO SCH (20:50)
[2022-01-22] VITALS: BP 93/51
[2022-01-22] MEDS ORDERED: hydrOXYzine 25 MG TAB PO ONE (00:30)
[2022-01-22] MEDS: AMPICILLIN SOD/SULBACTAM SOD 3 GM in D5W MINI-BAG PLUS 100 ML IV SCH ×3 (02:54→14:12)
[2022-01-22 04:00] VITALS: BP 99/54
[2022-01-22] MEDS: KETOROLAC 30 MG/ML 1ML VIAL IV SCH ×2 (06:25→14:12)
[2022-01-22] MEDS: NS 1,000 ML IV SCH ×2 (06:26→09:58)
[2022-01-22] MEDS ORDERED: BACITAB PO (07:32)
[2022-01-22] MEDS ORDERED: AMOX875T2 PO (07:32)
[2022-01-22 08:53] LABS: BASO % 0.3 % (0.0-1.0); EOS % 0.2 % (0.0-3.0); HEMATOCRIT 36.7 % (36.0-47.0); HEMOGLOBIN 11.9 g/dl (12.0-15.5); LYMPH # 3.3 10^3/uL (1.5-5.0); LYMPH % 26.8 % (24.0-44.0); MEAN CORPUSCULAR HEMOGLOBIN 28.5 pg (27.0-33.0); MEAN CORPUSCULAR HGB CONC 32.4 g/dl (32.0-36.5); MONO # 0.8 10^3/uL (0.0-0.8); MONO % 6.2 % (2.0-8.0); NEUTROPHILS # 8.1 10^3/uL (1.5-8.5); NEUTROPHILS % 65.1 % (36.0-66.0); PLATELET COUNT, AUTOMATED 237 10^3/uL (150-450); RED BLOOD COUNT 4.17 10^6/uL (4.00-5.40); WHITE BLOOD COUNT 12.4 10^3/uL (4.0-10.0)
[2022-01-22 09:13] LABS: ERYTHROCYTE SEDIMENTATION RATE 13 mm/hr (0-20)
[2022-01-22] MEDS: FLUoxetine 20 MG CAP PO SCH (09:58)
[2022-01-22 10:00] VITALS: BP 114/71
== END 2022-01-22 15:43 | disposition home or self-care (01) | DRG 153 ==
LOC: M ED 19:33 → M ED INP 01-20 01:46 → M PED 01-20 03:19 → OBSVTOIN 01-20 12:06 → EEVIPCON 01-20 12:06
PROVIDERS: ADMIT Family Medicine; ATTEND Family Medicine
DX: J36 Peritonsillar abscess (principal); R13.10 Dysphagia, unspecified; D72.829 Elevated white blood cell count, unspecified; F41.9 Anxiety disorder, unspecified; F32.A Depression, unspecified; J45.909 Unspecified asthma, uncomplicated; K21.9 Gastro-esophageal reflux disease without esophagitis; E66.9 Obesity, unspecified; Z68.36 Body mass index [BMI] 36.0-36.9, adult; Z90.49 Acquired absence of other specified parts of digestive tract; Z79.899 Other long term (current) drug therapy; Z88.1 Allergy status to other antibiotic agents; Z88.2 Allergy status to sulfonamides; Z91.013 Allergy to seafood; Z79.52 Long term (current) use of systemic steroids

== ENCOUNTER 2022-06-13 09:45 | Emergency (ER) | payer MEDICAID, OTHER ==
[~2022-06-13] VITALS: Ht 152.4 cm; Wt 90.6 kg
[~2022-06-13 09:45] MED LIST changes: +ACET-897 PO; +BACITAB PO; +HYDR-3363 PO; +IBUP-1764 PO
[2022-06-13] MEDS ORDERED: SERT50TA29 PO (09:56)
[2022-06-13 10:37] LABS: BASO % 0.2 % (0.0-1.0); EOS # 0.1 10^3/uL (0.0-0.5); EOS % 0.6 % (0.0-3.0); HEMATOCRIT 41.1 % (36.0-47.0); HEMOGLOBIN 13.6 g/dl (12.0-15.5); LYMPH # 1.9 10^3/uL (1.5-5.0); LYMPH % 17.4 % (24.0-44.0); MEAN CORPUSCULAR HEMOGLOBIN 28.8 pg (27.0-33.0); MEAN CORPUSCULAR HGB CONC 33.1 g/dl (32.0-36.5); MEAN CORPUSCULAR VOLUME 86.9 fl (80.0-96.0); MONO # 0.6 10^3/uL (0.0-0.8); MONO % 5.2 % (2.0-8.0); NEUTROPHILS # 8.2 10^3/uL (1.5-8.5); PLATELET COUNT, AUTOMATED 251 10^3/uL (150-450); RED BLOOD COUNT 4.73 10^6/uL (4.00-5.40); WHITE BLOOD COUNT 10.8 10^3/uL (4.0-10.0)
[2022-06-13 11:31] LABS: BLOOD UREA NITROGEN 8 MG/DL (7-18); CALCIUM LEVEL 9.4 MG/DL (8.5-10.1); CARBON DIOXIDE LEVEL 24 MEQ/L (21-32); CHLORIDE LEVEL 106 MEQ/L (98-107); CREATININE FOR GFR 0.64 MG/DL (0.55-1.30); GLOMERULAR FILTRATION RATE > 60.0 (>60); GLUCOSE, FASTING 77 MG/DL (70-100); HCG, SERUM QUANTITATIVE 41625 MIU/ML; POTASSIUM SERUM 3.9 MEQ/L (3.5-5.1); SODIUM LEVEL 134 MEQ/L (136-145)
[2022-06-13] MEDS ORDERED: ONDA4TAB6 PO (12:04)
[2022-06-13] MEDS ORDERED: ONDANSETRON 4MG ORAL DISINTEGRATING TAB PO ONE (12:05)
[2022-06-13 12:09] VITALS: BP 118/61
== END 2022-06-13 12:10 | disposition home or self-care (01) ==
LOC: M ED 09:45
DX: O20.8 Other hemorrhage in early pregnancy (principal); Z3A.12 12 weeks gestation of pregnancy; O99.341 Other mental disorders complicating pregnancy, first trimester; Z88.1 Allergy status to other antibiotic agents; Z88.2 Allergy status to sulfonamides; Z91.013 Allergy to seafood

== ENCOUNTER → 2023-05-19 | Outpatient (REF) | payer MEDICAID, OTHER, BC ==
[~2023-05-19] MED LIST changes: +ETON1VAG7 PV; +ETON1VAG7 VA; -NUVAMIS2 PV; -NUVAMIS2 VA; +ONDA4TAB6 PO; +SERT50TA29 PO
[2023-05-20 14:12] LABS: GC DNA AMPLIFICATION NEGATIVE (NEGATIVE)
== END ==
LOC: M LAB REF 12:01
PROVIDERS: ATTEND Nurse Practitioner Family
DX: Z11.9 Encounter for screening for infectious and parasitic diseases, unspecified (principal)

== ENCOUNTER 2023-11-26 15:17 | Emergency (ER) | payer OTHER ==
[~2023-11-26] VITALS: Ht 165.1 cm; Wt 89.8 kg
[2023-11-26 15:18] VITALS: BP 134/70; TEMP 98.3; O2SAT 99
[2023-11-26] MEDS ORDERED: CEPHALEXIN 500 MG CAP PO ONE (16:15)
[2023-11-26] MEDS ORDERED: CEPH500C PO (16:17)
== END 2023-11-26 16:39 | disposition home or self-care (01) ==
LOC: M ED 15:17
DX: N61.0 Mastitis without abscess (principal); N60.41 Mammary duct ectasia of right breast; J45.909 Unspecified asthma, uncomplicated; Z88.2 Allergy status to sulfonamides; Z91.013 Allergy to seafood; Z88.1 Allergy status to other antibiotic agents; Z79.899 Other long term (current) drug therapy

== ENCOUNTER → 2024-07-02 | Outpatient (REF) | payer OTHER ==
[~2024-07-02] MED LIST changes: +CEPH500C PO; +FLUO-365 PO; -FLUO20CA22 PO; +ONDA-282 PO; -ONDA4TAB6 PO
== END ==
LOC: M LAB REF 16:10
PROVIDERS: ATTEND Nurse Practitioner Family
DX: J06.9 Acute upper respiratory infection, unspecified (principal)

== ENCOUNTER → 2024-08-20 | Outpatient (CLI) | payer OTHER | LOC: M CARPUL 10:39 | PROVIDERS: ATTEND Nurse Practitioner Family | DX: J45.40 Moderate persistent asthma, uncomplicated (principal) ==

== ENCOUNTER → 2024-09-12 | Outpatient (REF) | payer OTHER ==
[~2024-09-12] MED LIST changes: +LAMI25TA PO; +LEVA15HF2 INH; -LEVAINH INH; +TRAZ-252 PO; +VENTAER INH
[2024-09-12 18:09] LABS: BASO % 0.4 % (0.0-1.0); EOS # 0.1 10^3/uL (0.0-0.5); EOS % 1.1 % (0.0-3.0); HEMATOCRIT 43.3 % (36.0-47.0); HEMOGLOBIN 14.2 g/dl (12.0-15.5); LYMPH # 2.6 10^3/uL (1.5-5.0); LYMPH % 31.7 % (24.0-44.0); MEAN CORPUSCULAR HEMOGLOBIN 29.5 pg (27.0-33.0); MEAN CORPUSCULAR HGB CONC 32.8 g/dl (32.0-36.5); MONO # 0.6 10^3/uL (0.0-0.8); NEUTROPHILS # 4.9 10^3/uL (1.5-8.5); NEUTROPHILS % 59.2 % (36.0-66.0); PLATELET COUNT, AUTOMATED 310 10^3/uL (150-450); RED BLOOD COUNT 4.81 10^6/uL (4.00-5.40); WHITE BLOOD COUNT 8.3 10^3/uL (4.0-10.0)
[2024-09-12 18:18] LABS: BLOOD UREA NITROGEN 14 MG/DL (9-23); CALCIUM LEVEL 9.9 MG/DL (8.5-10.1); CARBON DIOXIDE LEVEL 27 MMOL/L (20-31); CHLORIDE LEVEL 104 MMOL/L (98-107); CREATININE FOR GFR 0.85 MG/DL (0.55-1.30); GLOMERULAR FILTRATION RATE > 60.0 (>60); GLUCOSE, FASTING 101 MG/DL (60-100); POTASSIUM SERUM 4.4 MMOL/L (3.5-5.1); SODIUM LEVEL 138 MMOL/L (136-145)
[2024-09-12 18:20] LABS: THYROID STIMULATING HORMONE 2.044 uIU/ML (0.55-4.78)
[2024-09-12 18:21] LABS: TOTAL 25(OH) VITAMIN D 18.9 NG/ML (20.0-100.0)
== END ==
LOC: M LAB REF 17:35
PROVIDERS: ATTEND Nurse Practitioner Family
DX: R53.83 Other fatigue (principal); Z77.011 Contact with and (suspected) exposure to lead; E55.9 Vitamin D deficiency, unspecified

== ENCOUNTER 2024-09-14 17:13 | Inpatient (IN) | payer MEDICAID, OTHER ==
[~2024-09-14] VITALS: Ht 152.4 cm; Wt 90.2 kg
[~2024-09-14 17:13] MED LIST changes: -LAMI25TA PO; -TRAZ-252 PO; -VENTAER INH
[2024-09-14 18:16] LABS: HEMATOCRIT 41.6 % (36.0-47.0); HEMOGLOBIN 13.7 g/dl (12.0-15.5); MEAN CORPUSCULAR HEMOGLOBIN 29.5 pg (27.0-33.0); MEAN CORPUSCULAR HGB CONC 32.9 g/dl (32.0-36.5); MEAN CORPUSCULAR VOLUME 89.5 fl (80.0-96.0); PLATELET COUNT, AUTOMATED 270 10^3/uL (150-450); RED BLOOD COUNT 4.65 10^6/uL (4.00-5.40); WHITE BLOOD COUNT 7.9 10^3/uL (4.0-10.0)
[2024-09-14 18:31] LABS: ETHYL ALCOHOL (ETHANOL) 0.004 % (0.000-0.010); HCG, SERUM QUALITATIVE NEGATIVE (NEGATIVE)
[2024-09-14 18:33] LABS: ALBUMIN 3.4 G/DL (3.2-5.2); ALKALINE PHOSPHATASE 45 U/L (35-104); ALT/SGPT 19 U/L (7.0-40); AST/SGOT 12 U/L (<34); BILIRUBIN,DIRECT < 0.1 MG/DL (<0.4); BILIRUBIN,TOTAL 0.3 MG/DL (0.3-1.2); BLOOD UREA NITROGEN 13 MG/DL (9-23); CALCIUM LEVEL 9.6 MG/DL (8.5-10.1); CARBON DIOXIDE LEVEL 24 MMOL/L (20-31); CHLORIDE LEVEL 106 MMOL/L (98-107); CREATININE FOR GFR 0.93 MG/DL (0.55-1.30); GLOMERULAR FILTRATION RATE > 60.0 (>60); GLUCOSE, FASTING 143 MG/DL (60-100); SALICYLATE LEVEL < 3.0 MG/DL (<30); SODIUM LEVEL 141 MMOL/L (136-145); TOTAL PROTEIN 7.3 G/DL (5.7-8.2)
[2024-09-14 18:36] LABS: THYROID STIMULATING HORMONE 1.563 uIU/ML (0.55-4.78)
[2024-09-14 19:32] LABS: AMPHETAMINES LEVEL URINE NEGATIVE (NEGATIVE); BARBITURATES URINE NEGATIVE (NEGATIVE); BENZODIAZEPINES URINE NEGATIVE (NEGATIVE); CANNABINOIDS URINE NEGATIVE (NEGATIVE); COCAINE METABOLITE URINE NEGATIVE (NEGATIVE); METHADONE URINE NEGATIVE (NEGATIVE); OPIATES URINE NEGATIVE (NEGATIVE); PHENCYCLIDINE URINE NEGATIVE (NEGATIVE)
[2024-09-14] MEDS ORDERED: MAALOX 30 ML SUSP *UDC PO PRN (20:15)
[2024-09-14] MEDS ORDERED: diphenhydrAMINE 25MG CAP PO PRN (20:15)
[2024-09-14] MEDS ORDERED: HOME MED LIST COMPLETE! XX SCH (20:55)
[2024-09-14 22:37] VITALS: BP 138/83; TEMP 97.9; O2SAT 99
[2024-09-15 06:22] VITALS: BP 107/55; TEMP 97.5; O2SAT 96
[2024-09-15] MEDS: IBUPROFEN 400MG TAB PO PRN (08:26)
[2024-09-15] MEDS ORDERED: ALBUTEROL 90 MCG/ACT 8GM HFA INHALER INH PRN (09:15)
[2024-09-15] MEDS: FLUoxetine 20MG CAP PO SCH (11:14)
[2024-09-15] MEDS: ACETAMINOPHEN 325 MG TAB PO PRN (14:41)
[2024-09-15 15:07] VITALS: BP 139/90; TEMP 97.7; O2SAT 100
[2024-09-16 06:21] VITALS: BP 121/72; TEMP 97.5; O2SAT 97
[2024-09-16 15:58] VITALS: BP 129/73; TEMP 98.2; O2SAT 96
[2024-09-16] MEDS: traZODone 50 MG TAB PO PRN (20:48)
[2024-09-17 06:35] VITALS: BP 120/58; TEMP 97.7; O2SAT 96
[2024-09-17] MEDS: lamoTRIgine 25MG TAB PO SCH (10:59)
[2024-09-17] MEDS: MOM 30ML SUSPENSION UDC PO PRN (11:00)
[2024-09-17 14:43] VITALS: BP 131/68; TEMP 98.1; O2SAT 99
[2024-09-18 06:42] VITALS: BP 119/63; TEMP 96.9; O2SAT 98
[2024-09-18] MEDS ORDERED: LAMI25TA PO (12:45)
[2024-09-18] MEDS ORDERED: VENTAER INH (12:45)
[2024-09-18] MEDS ORDERED: TRAZ-252 PO (12:45)
[2024-09-18] MEDS ORDERED: HYDR-3363 PO (12:45)
[2024-09-18 14:51] VITALS: BP 130/81; TEMP 98.4; O2SAT 97
== END 2024-09-18 14:15 | disposition home or self-care (01) | DRG 754 ==
LOC: M ED 17:13 → M ED INP 20:11 → M PSY 22:27
PROVIDERS: ADMIT Psychiatry & Neurology Neurology; ATTEND Psychiatry & Neurology Psychiatry
DX: F32.A Depression, unspecified (principal); R45.851 Suicidal ideations; J45.20 Mild intermittent asthma, uncomplicated; Z79.899 Other long term (current) drug therapy; Z88.2 Allergy status to sulfonamides; Z88.1 Allergy status to other antibiotic agents; Z91.013 Allergy to seafood; Z59.86 Financial insecurity

== ENCOUNTER → 2024-09-27 | Outpatient (REF) | payer MEDICAID ==
[~2024-09-27] MED LIST changes: +LAMI25TA PO; +TRAZ-252 PO; +VENTAER INH
[2024-09-27 17:46] LABS: HEMOGLOBIN A1c 4.7 % (4.0-6.0)
== END ==
LOC: M LAB REF 16:29
PROVIDERS: ATTEND Nurse Practitioner Family
DX: F41.8 Other specified anxiety disorders (principal); E66.9 Obesity, unspecified

== ENCOUNTER 2025-04-25 18:42 | Emergency (ER) | payer OTHER ==
[~2025-04-25] VITALS: Ht 152.4 cm; Wt 90.9 kg
[~2025-04-25 18:42] MED LIST changes: +HYDR-3364; -HYDR-4570; +LAMO-18 PO; -LAMO25TA4 PO
[2025-04-25 20:40] LABS: BASO # 0.0 10^3/uL (0.0-0.2); BASO % 0.3 % (0.0-1.0); EOS # 0.1 10^3/uL (0.0-0.5); EOS % 0.9 % (0.0-3.0); LYMPH # 3.8 10^3/uL (1.5-5.0); LYMPH % 36.2 % (24.0-44.0); MONO # 0.8 10^3/uL (0.0-0.8); MONO % 7.6 % (2.0-8.0); NEUTROPHILS # 5.8 10^3/uL (1.5-8.5); NEUTROPHILS % 54.6 % (36.0-66.0); PLATELET COUNT, AUTOMATED 300 10^3/uL (150-450)
[2025-04-25 20:41] LABS: KETONE, URINE AUTO RFX NEGATIVE (NEGATIVE); LEUKOCYTE ESTERASE UR AUTO RFX NEGATIVE (NEGATIVE); NITRITE, URINE AUTO RFX NEGATIVE (NEGATIVE); RBC, URINE AUTO RFX 0 /HPF (0-3); SQUAM EPITHELIAL CELL UR AURFX 1 /HPF (0-6); WBC, URINE AUTO RFX 10 /HPF (0-3)
[2025-04-25] MEDS: ONDANSETRON 4MG 2ML VIAL IV ONE (20:55)
[2025-04-25] MEDS: MORPHINE 4 MG/ML 1 ML VIAL IV ONE (20:56)
[2025-04-25] MEDS: NS (Normal Saline) 0.9% 1,000 ML IV ONE ×2 (20:56→21:29)
[2025-04-25 21:05] LABS: ALT/SGPT 22 U/L (7.0-40); AST/SGOT 34 U/L (<34); CALCIUM LEVEL 9.5 MG/DL (8.5-10.1); CARBON DIOXIDE LEVEL 25 MMOL/L (20-31); CHLORIDE LEVEL 105 MMOL/L (98-107); CREATININE FOR GFR 0.82 MG/DL (0.55-1.30); GLOMERULAR FILTRATION RATE > 90.0 (>60); POTASSIUM SERUM 4.8 MMOL/L (3.5-5.1); SODIUM LEVEL 143 MMOL/L (136-145)
[2025-04-25] MEDS: PIPERACILLIN/TAZOBACTAM SOD 3.375 GM in DEXTROSE 5% (D5W) ADV/MINI-BAG 50 ML IV ONE (21:28)
[2025-04-25] MEDS ORDERED: ISOVUE-370 76% 100 ML VIAL As Ordered ONE (21:31)
[2025-04-25] MEDS: diphenhydrAMINE 50 MG/ML VIAL IV ONE (22:00)
[2025-04-25] MEDS ORDERED: MORPHINE 2 MG/ML 1 ML VIAL IV PRN (23:55)
[2025-04-26] MEDS ORDERED: KETO-204 PO (01:09)
[2025-04-26] MEDS: KETOROLAC 30 MG/ML 1 ML VIAL IV ONE (01:13)
[2025-04-26 01:30] VITALS: BP 129/78; TEMP 98.4; O2SAT 98
== END 2025-04-26 01:40 | disposition home or self-care (01) ==
LOC: M ED 18:42
DX: R10.31 Right lower quadrant pain (principal); F17.200 Nicotine dependence, unspecified, uncomplicated; R16.0 Hepatomegaly, not elsewhere classified; Z88.2 Allergy status to sulfonamides; Z88.1 Allergy status to other antibiotic agents; Z91.013 Allergy to seafood; Z79.52 Long term (current) use of systemic steroids; Z79.899 Other long term (current) drug therapy
CPT/HCPCS: 74177; 80048; 80076; 81001; 83605; 83690; 84702; 85025; 96365; 96366; 96375; 99284; J1200; J1885; J2405; J2543; J2919; Q9967

== ENCOUNTER → 2025-05-13 | Outpatient (REF) | payer OTHER ==
[~2025-05-13] MED LIST changes: +KETO-204 PO
[2025-05-13 13:24] LABS: AMORPHOUS SEDIMENT SMALL (NEGATIVE); BACTERIA, URINE AUTO NEGATIVE (NEGATIVE); RBC, URINE AUTO 3 /HPF (0-3); SQUAMOUS EPITHELIAL CELL UR AU 8 /HPF (0-6); WBC, URINE AUTO 1 /HPF (0-3)
[2025-05-13 14:15] LABS: APPEARANCE, URINE HAZY (CLEAR); SPECIFIC GRAVITY URINE AUTO 1.011 (1.002-1.035)
[2025-05-13 14:16] LABS: BILIRUBIN, URINE AUTO NEGATIVE (NEGATIVE); BLOOD, URINE BLOOD NEGATIVE (NEGATIVE); GLUCOSE, URINE (UA) AUTO NEGATIVE (NEGATIVE); KETONE, URINE AUTO NEGATIVE (NEGATIVE); LEUKOCYTE ESTERASE, URINE AUTO 1+ (NEGATIVE); NITRITE, URINE AUTO NEGATIVE (NEGATIVE); PROTEIN, URINE AUTO NEGATIVE (NEGATIVE); UROBILINOGEN, URINE AUTO 0.2 mg/dL (0.0-2.0)
[2025-05-13 15:07] LABS: BASO # 0.0 10^3/uL (0.0-0.2); BASO % 0.3 % (0.0-1.0); EOS # 0.1 10^3/uL (0.0-0.5); EOS % 0.7 % (0.0-3.0); LYMPH # 1.6 10^3/uL (1.5-5.0); LYMPH % 15.5 % (24.0-44.0); MONO # 0.6 10^3/uL (0.0-0.8); MONO % 5.9 % (2.0-8.0); NEUTROPHILS # 8.0 10^3/uL (1.5-8.5); NEUTROPHILS % 77.0 % (36.0-66.0); PLATELET COUNT, AUTOMATED 257 10^3/uL (150-450)
[2025-05-13 15:14] LABS: ERYTHROCYTE SEDIMENTATION RATE 17 mm/hr (0-20)
== END ==
LOC: M LAB REF 12:04
PROVIDERS: ATTEND Nurse Practitioner Family
DX: D72.829 Elevated white blood cell count, unspecified (principal); N32.89 Other specified disorders of bladder; Z11.9 Encounter for screening for infectious and parasitic diseases, unspecified

== ENCOUNTER 2025-08-08 16:21 | Emergency (ER) | payer OTHER ==
[~2025-08-08] VITALS: Ht 152.4 cm; Wt 90.9 kg
[2025-08-08] MEDS ORDERED: IBUP200T46 PO (16:34)
[2025-08-08] MEDS ORDERED: ACET-683 PO (16:34)
[2025-08-08] MEDS ORDERED: OMEP-173 (16:34)
[2025-08-08 19:48] VITALS: BP 124/83; TEMP 97.9; O2SAT 99
== END 2025-08-08 21:24 | disposition left against medical advice (07) ==
LOC: M ED 16:21
DX: Z53.21 Procedure and treatment not carried out due to patient leaving prior to being seen by health care provider (principal)